=== PATIENT | male | born 1995 | race Caucasian/White ===

== ENCOUNTER 2020-01-12 15:28 | Outpatient (CLI) | payer BC ==
--- NOTE | 2020-01-12 16:14 | RAD ---
EXAM: XR Lumbar Spine 2 Or 3 View PROVIDED CLINICAL HISTORY: Acute bilateral low back pain and right-sided sciatica. COMPARISON: None FINDINGS: There are 5 nonrib-bearing lumbar-type vertebral bodies. The vertebral body heights and intervertebra l disc spaces are within normal limits. There is grade 1 anterolisthesis of L5 on S1 measuring approximately 4 mm. Iliac bones overlie the posterior elements at L5 limiting adequate evaluation. No fracture is appreciated. IMPRESSION: 1. Grade 1 anterolisthesis of L5 on S1. 2. No evidence for fracture. 3. Given patient's history of radicular pain, MRI lumbar spine may be helpful for further evaluation.
== END 2020-01-12 15:29 | disposition home or self-care (01) ==
LOC: BICRAD 15:28
PROVIDERS: ATTEND Physician Assistant
DX: M54.41 Lumbago with sciatica, right side (principal); M43.17 Spondylolisthesis, lumbosacral region
CPT/HCPCS: 72100